=== PATIENT | male | born 1985 | race Caucasian/White ===

== ENCOUNTER 2022-09-20 17:06 | Emergency (ER) | payer SELFPAY ==
[~2022-09-20] VITALS: Ht 170.2 cm; Wt 81.6 kg
[2022-09-20 17:19] VITALS: BP 128/82
--- NOTE | 2022-09-20 17:59 | NUR ---
PT AMBULATED TO LOBBY
--- NOTE | 2022-09-20 19:52 | NUR ---
PATIENT ELOPED FROM FACILITY. DISCHARGE INSTRUCTIONS NOT GIVEN TO PATIENT. DR. Sam NOTIFIED.
== END 2022-09-20 19:52 | disposition left against medical advice (07) ==
LOC: MED 17:06
DX: F41.9 Anxiety disorder, unspecified (principal); R07.9 Chest pain, unspecified; F32.9 Major depressive disorder, single episode, unspecified
CPT/HCPCS: 93005; 99283